=== PATIENT | female | born 1985 | race Caucasian/White ===

== ENCOUNTER → 2017-02-19 | Day surgery (SDC) | payer BC, OTHER ==
[2017-02-03 16:41] VITALS: Ht 175.3 cm; Wt 62.7 kg
[~2017-02-19] VITALS: Ht 175.3 cm; Wt 62.7 kg
[~2017-02-19] MED LIST: ACETAMINOPHEN 1000 MG/100 ML IV IV ONE; ATROPINE SULFATE 0.1 MG/ML 5ML SYR IV PRN; CHOL2000 PO; CLB/200 PO; CLINDAMYCIN PHOS 150 MG/ML 2 ML VIAL IV SCH; COEN1CAP PO; CTP/1 PO; CYCL10TA6 PO; DEXAMETHASONE SOD INJ 4 MG/ML VIAL ONE; DIAZ2TAB PO; EpHEDrine SULFATE INJ 50 MG/ML AMP IV PRN; EpINEphrine INJ 1MG/ML AMP 1 MG/ML AMP ONE; FENTANYL CITRATE INJ 50 MCG/1 ML 2 ML VIAL ONE; FRN PO; GABA-113 PO; GING1CAP PO; HYDR-5688 PO; HYDROCODONE/ACETAMOPHEN 5/325MG TAB PO PRN; HYDROmorphone INJ 1 MG/ML SYR IV PRN; KETOROLAC TROMETHAMINE 30 MG/ML VIAL ONE; LACTATED RINGER'S 1000ML 1,000 ML IV SCH; LIDOCAINE HCL 2% 2 ML VIAL (20MG/ML) ONE; MAGN250T9 PO; MIDAZOLAM HCL 1 MG/ML 2ML VIAL ONE; ONDANSETRON INJ 2 MG/ML 2 ML VIAL IV PRN; ONDANSETRON INJ 2 MG/ML 2 ML VIAL ONE; POLY335025 PO; PRLSR20 PO; PROMETHAZINE HCL INJ 12.5 MG in SODIUM CHLORIDE 0.9% 50ML 50 ML IV PRN; PROPOFOL IV EMULSION 10 MG/ML 20 ML VIAL IV ONE; ROPIVACAINE 0.5% 5 MG/ML 30 ML VIAL ONE; SODIUM CHLORIDE 0.9% 1000ML 1,000 ML IV SCH
--- NOTE | 2017-02-19 08:20 | History & Physical Bridge Note ---
H&P Re-Evaluation Bridge Note: I have examined the patient, reviewed the History & Physical and in the interval since the performance of the History & Physical I have noted the following changes of clinical significance: No changes noted
--- NOTE | 2017-02-19 09:44 | [facility] Post Operative Brief Note ---
Immediate Operative Summary Operative Date Feb 19, 2017. Pre-Operative Diagnosis Liposynovitis Prepatellaris Post-Operative Diagnosis Same Procedure(s) Performed Left Knee Arthroscopy Synovectomy Surgeon Dr. Ledesma Team Cdl Driver Surgeon(s) Yakelin Ribeiro PA-C Estimated Blood Loss 5ml Findings as above Specimens None Complication(s) None Disposition Recovery Room / PACU
--- NOTE | 2017-02-19 09:45 | Discharge Instructions-SurgCtr ---
Discharge Instructions Date of Service Feb 19, 2017. Visit Reason for Visit: Liposynovitis Prepatellaris Discharge Discharge Diagnosis / Problem: SAME ABOVE Discharge Goals Goal(s): Decrease discomfort, Improve function Medications Stopped Medications Name(s): CELEBREX- STOPPED 1 WEEK AGO Restart Stopped Medication(s): NOVEMBER RESTART 02/19/2017 Activity Recommendations Activity Limitations: as noted below Lifting Limitations: gradually increase as tolerated Exercise/Sports Limitations: gradually increase as tolerated Shower/Bathe: tomorrow Driving or Machine Use: resume 1 day after discharge Anesthesia . Post Anesthesia Instructions: If you have had General Anesthesia or IV Sedation: * Do not drive today. * Resume driving when surgeon permits. * Do not make important decisions or sign legal documents today. * Call surgeon for: 1. Temperature elevations greater than 101 degrees F. 2. Uncontrollable pain. 3. Excessive bleeding. 4. Persistent nausea and vomiting. 5. Medication intolerance (nausea, vomiting or rash). * For nausea and vomiting use only clear liquids such as: tea, soda, bouillon until nausea subsides, then gradually increase diet as tolerated. * If you have any concerns or questions, call your surgeon's office. If physician is unavailable and it is an emergency, call 911 or go to the nearest emergency room. . Instructions / Follow-Up Instructions / Follow-Up MEDICATIONS: * Resume previous medications unless instructed otherwise by your surgeon. * Always take pain medication on a full stomach or with food to avoid upset stomach. * Do not drink alcohol or drive while taking narcotics. * Ibuprofen or Tylenol may be taken if narcotic not needed. SPECIAL CARE INSTRUCTIONS: __ None _X_ Keep extremity elevated and iced x 48 hours; apply ice 20-30 minutes 8-10 times/day. May remove at night. _X_ Crutches _X_ May discard when able __ Brace/Post-op shoe __ 24 hrs/day __ Remove at night _X_ Dressing __ Maintain until seen in office, may shower with plastic over site _X_ Remove dressings in 24-48 hours and then may shower _X_ Cover incisions with band-aids after showering __ Do not remove steri-strips Call physician if chills or temperature rises above 102 degrees or pain unrelieved by prescribed pain medications. Office [phone] Diet Recommendations Home Diet: no limitations Fluid Restriction: None Procedures Procedures Performed: Left Knee Arthroscopy Synovectomy Pending Studies Studies pending at discharge: no Work Instructions Return To Work: after follow-up Medical Emergencies . Who to Call and When: Medical Emergencies: If at any time you feel your situation is an emergency, please call 911 immediately. . Non-Emergent Contact Non-Emergency issues call your: Primary Care Provider, Hospital Doctor Call Non-Emergent contact if: you have a fever, temperature is above 101.5 . . "Provider Documentation" section prepared by Maco Ribeiro. .
--- NOTE | 2017-02-19 09:53 | OPERATIVE REPORT ---
DATE OF OPERATION: 02/19/2017 PREOPERATIVE DIAGNOSES: Synovitis with plica and fat pad impingement of the left knee. POSTOPERATIVE DIAGNOSES: Same. PROCEDURE: Left knee arthroscopy with extensive debridement. SURGEON: Dr. Guillermo Ledesma. LICENSED APPRAISER: Garrick Ribeiro PA-C, whose assistance was necessary for positioning of the knee and helping with instrumentation. ANESTHESIA: General. COMPLICATIONS: None. CONDITION: Stable to PACU. INDICATIONS: Alisha is a pleasant 31-year-old female who presented to my office mostly with patellofemoral type symptoms. All of her pain was located in the superior medial border of the patella. After failing a year of conservative treatment, I got an MRI. The MRI did show signs of fat pad impingement in the superior medial aspect of the patella. It did light up at that area. She also had sided plica. After failing conservative treatment, she elected to undergo arthroscopy. DESCRIPTION OF PROCEDURE: On 02/19/2017, she arrived at [facility] for the above procedure. She was seen in the preoperative holding area and the operative extremity was identified and signed. She was given a preoperative antibiotic, taken back to the operating room, laid on the table in supine position and put under general anesthesia. The left knee was then prepped and draped in sterile fashion. Time-out was done and the patient and operative extremity was properly identified. A scope was introduced in the lateral parapatellar portal. Diagnostic arthroscopy showed no cartilage damage within the trochlea or patella. There were no loose bodies in the suprapatellar pouch. There was some inflamed synovitis within the superior medial border of the patella. There was a large plica. The scope was brought into the medial compartment. A medial parapatellar portal was made under direct visualization. A probe was used to probe the medial meniscus and there was no evidence of tear. There was no cartilage damage in the medial compartment. The scope was brought into the trochlea. ACL and PCL were intact. The scope was then brought into the lateral compartment and there was no cartilage or meniscus damage. The knee was then brought into full extension. A shaver was used to start the synovectomy. At first, the fat pad was completely removed. Then attention was turned to the superior medial border of the patella. Time was spent doing a synovectomy of that area and removing any signs of fat pad impingement. Multiple pictures were taken. Time was spent removing any debris from the suprapatellar pouch. The scope was then placed in the medial parapatellar portal. Repeat diagnostic arthroscopy showed no additional pathology. The knee was then irrigated. Arthroscopic instruments were removed from the knee. Portal sites were closed with 3-0 nylon. The knee was then injected with 30 mL of Naropin, epinephrine and Toradol. She was then placed in a soft compressive dressing, extubated, transferred to a [facility] and taken to the postanesthesia care unit in stable condition. She tolerated the procedure well. I attest to the content of the Intraoperative Record and any orders documented therein. Any exceptions are noted below. DRU
[2017-02-19] MEDS: FENTANYL CITRATE INJ 50 MCG/1 ML 2 ML VIAL IV PRN ×2 (10:09→10:15)
[2017-02-19 10:48] VITALS: TEMP 36.5
[2017-02-19 11:24] VITALS: BP 102/68; PULSE 78; O2SAT 100
--- NOTE | 2017-02-19 11:36 | Anesthesia Progress Nt - [facility] ---
Anesthesia Post Op Note Date & Time Feb 19, 2017 at 11:35 Vital Signs Pain Intensity: 2 Vital Signs Past 12 Hours Date Time Temp Pulse Resp B/P (MAP) Pulse Ox O2 Delivery O2 Flow Rate FiO2 02/19/17 11:24 78 16 102/68 (79) 100 Room Air 02/19/17 10:48 36.5 79 16 111/72 (85) 100 Room Air 02/19/17 10:41 37.3 77 12 108/68 100 Room Air 02/19/17 10:40 73 19 02/19/17 10:40 73 19 108/68 100 02/19/17 10:35 72 12 111/68 98 02/19/17 10:35 74 12 02/19/17 10:30 82 17 108/68 99 02/19/17 10:30 80 17 02/19/17 10:25 86 20 02/19/17 10:25 85 20 107/65 100 02/19/17 10:20 76 13 02/19/17 10:20 76 13 123/66 100 02/19/17 10:15 80 10 02/19/17 10:15 80 10 110/70 100 02/19/17 10:10 73 8 02/19/17 10:10 74 8 111/62 100 02/19/17 10:05 88 15 109/62 100 02/19/17 10:05 87 15 02/19/17 10:00 76 12 02/19/17 10:00 71 12 103/61 100 02/19/17 09:55 69 10 02/19/17 09:55 69 10 103/63 100 02/19/17 09:50 74 02/19/17 09:50 36.2 61 12 108/66 100 Mask 6 02/19/17 09:50 74 108/66 100 02/19/17 07:39 36.8 96 20 105/72 (83) 98 Room Air Notes Mental Status: alert / awake / arousable, participated in evaluation Pt Amnestic to Procedure: Yes Nausea / Vomiting: adequately controlled Pain: adequately controlled Airway Patency, RR, SpO2: stable & adequate BP & HR: stable & adequate Hydration State: stable & adequate Anesthetic Complications: no major complications apparent doing well. Pain controlled. No n/v
== END | disposition home or self-care (01) ==
LOC: X.SURG 07:18
PROVIDERS: ATTEND Orthopaedic Surgery
DX: M65.9 Synovitis and tenosynovitis, unspecified (principal); M25.862 Other specified joint disorders, left knee; E88.89 Other specified metabolic disorders; M79.7 Fibromyalgia; J45.909 Unspecified asthma, uncomplicated; Z82.3 Family history of stroke

== ENCOUNTER 2017-10-05 19:49 | Emergency (ER) | payer OTHER ==
[~2017-10-05] VITALS: Ht 175.3 cm; Wt 66.8 kg
[~2017-10-05 19:49] MED LIST changes: -ACETAMINOPHEN 1000 MG/100 ML IV IV ONE; -ATROPINE SULFATE 0.1 MG/ML 5ML SYR IV PRN; -CLINDAMYCIN PHOS 150 MG/ML 2 ML VIAL IV SCH; -DEXAMETHASONE SOD INJ 4 MG/ML VIAL ONE; -EpHEDrine SULFATE INJ 50 MG/ML AMP IV PRN; -EpINEphrine INJ 1MG/ML AMP 1 MG/ML AMP ONE; -FENTANYL CITRATE INJ 50 MCG/1 ML 2 ML VIAL ONE; -HYDR-5688 PO; -HYDROCODONE/ACETAMOPHEN 5/325MG TAB PO PRN; -HYDROmorphone INJ 1 MG/ML SYR IV PRN; -KETOROLAC TROMETHAMINE 30 MG/ML VIAL ONE; -LACTATED RINGER'S 1000ML 1,000 ML IV SCH; -LIDOCAINE HCL 2% 2 ML VIAL (20MG/ML) ONE; -MIDAZOLAM HCL 1 MG/ML 2ML VIAL ONE; -ONDANSETRON INJ 2 MG/ML 2 ML VIAL IV PRN; -ONDANSETRON INJ 2 MG/ML 2 ML VIAL ONE; -PROMETHAZINE HCL INJ 12.5 MG in SODIUM CHLORIDE 0.9% 50ML 50 ML IV PRN; -PROPOFOL IV EMULSION 10 MG/ML 20 ML VIAL IV ONE; -ROPIVACAINE 0.5% 5 MG/ML 30 ML VIAL ONE; -SODIUM CHLORIDE 0.9% 1000ML 1,000 ML IV SCH
[2017-10-05 19:59] VITALS: TEMP 36.8; Ht 175.3 cm; Wt 66.8 kg
[2017-10-05] MEDS ORDERED: SODIUM CHLORIDE 0.9% 1000ML 1,000 ML IV STA (21:40)
[2017-10-05] MEDS ORDERED: DiphenhydrAMINE HCL 50 MG/ML VIAL IV STA (21:40)
[2017-10-05] MEDS ORDERED: METOCLOPRAMIDE HCL INJ 5 MG/ML 2 ML VIAL IV STA (21:40)
[2017-10-05 22:09] VITALS: O2SAT 98
[2017-10-05 22:13] LABS: BASO % 0.3 %; BASO ABS # 0.03 K/uL (0-0.2); EOS % 0.5 %; EOS ABS # 0.06 K/uL (0-0.5); HEMOGLOBIN 14.8 g/dL (12.0-16.0); IG# 0.07 K/uL (0.00-0.02); LYMPH % 30.7 %; LYMPH ABS # 3.36 K/uL (1.2-3.4); MEAN CORPUSCULAR HEMOGLOBIN 31.4 pg (25-34); MEAN CORPUSCULAR HGB CONC 35.2 g/dl (32-36); MEAN PLATELET VOLUME 9.7 fL (7.4-10.4); MONO % 8.6 %; MONO ABS # 0.94 K/uL (0.11-0.59); NEUT % 59.3 %; NEUT ABS # 6.49 K/uL (1.4-6.5); PLATELET COUNT 271 K/uL (130-400); RED CELL DISTRIBUTION WIDTH CV 12.4 % (11.5-14.5); RED CELL DISTRIBUTION WIDTH SD 40.2 fL (36.4-46.3); WHITE BLOOD COUNT 10.95 K/uL (4.8-10.8)
[2017-10-05 22:37] LABS: ALBUMIN 4.6 gm/dl (3.4-5.0); ALT/SGPT 19 U/L (12-78); BLOOD UREA NITROGEN 14 mg/dl (7-18); CARBON DIOXIDE 27 mmol/L (21-32); CREATININE 0.93 mg/dl (0.60-1.20); GLUCOSE 88 mg/dl (70-99); POTASSIUM 3.8 mmol/L (3.5-5.1); SODIUM 138 mmol/L (136-145)
[2017-10-05 22:48] LABS: ALKALINE PHOSPHATASE 62 U/L (45-117); AST/SGOT 8 U/L (15-37); TOTAL PROTEIN 7.7 gm/dl (6.4-8.2)
[2017-10-06] MEDS ORDERED: PROCHLORPERAZINE 5 MG/ML 2 ML VIAL IV STA (00:02)
[2017-10-06] MEDS ORDERED: KETOROLAC TROMETHAMINE 30 MG/ML VIAL IV STA (00:02)
--- NOTE | 2017-10-06 00:57 | EMERGENCY ROOM VISIT NOTE ---
ED Visit Note First contact with patient: 21:24 Patient was seen by our PA/HEAVY EQUIPMENT PLUMBING SUPERVISOR. I was involved in the patient's care and did evaluate the patient myself. I was involved in the care throughout the ER stay. The patient presents with a headache. Workup today is reassuring. MRI is unchanged. The patient is improved after being medicated. She is being discharged home with neurology follow-up.
[2017-10-06] MEDS ORDERED: GADAVIST IV PRN (01:00)
[2017-10-06 01:51] VITALS: BP 118/70; PULSE 78; O2SAT 98
--- NOTE | 2017-10-06 05:58 | EMERGENCY ROOM VISIT NOTE ---
History First contact with patient: 21:24 Chief Complaint: HEADACHE Stated Complaint: MIGRAINE,BLURRIED VISION History of Present Illness The patient is a 32 year old female who presents to the Emergency Room with complaints of increasing headaches for the past few days with blurred vision tonight. Patient states she had an MRI earlier this month that showed a pituitary adenoma versus cyst. She has an appointment 22 October with neurology and 25 December with [place] [facility]. Patient is concerned he might be changes to her pituitary gland. Patient denies severe headache, localized weakness, fever, chills, neck stiffness, chest pain, dyspnea, vision loss, floaters, eye pain, cough, congestion, cold symptoms, abdominal pain. She is tolerating p.o. fluids and food. No injury. Review of Systems An 10 system review of systems was completed with positives and pertinent negatives listed in the HPI. Past Medical/Surgical History Migraines, pituitary adenoma, fibromyalgia, asthma Social History Smoking Status: Never Smoker Alcohol Use: none Drug Use: none Marital Status: Housing Status: lives with family Current/Historical Medications Scheduled Celecoxib (CeleBREX), 200 MG PO QAM Cholecalciferol (Vitamin D3), 2,000 INTER.UNIT PO QAM Clonidine Hcl (Catapres), 0.1 MG PO HS Magnesium (Magnesium), 250 MG PO QAM Omeprazole (Prilosec), 20 MG PO QAM Polyethylene Glycol 3350 (Miralax), 17 GM PO DAILY Scheduled PRN Brnnfrshul-Oahltxh-Vyyxgsit (Butalbital/Aspirin/Caffei 50-325-40 mg), 1 CAP PO UD PRN for Headache Cyclobenzaprine Hcl (Flexeril), 10 MG PO TID PRN for Muscle Spasm Diazepam (Valium), 1-2 MG PO BID PRN for Muscle Spasm Physical Exam Vital Signs Date Time Temp Pulse Resp B/P (MAP) Pulse Ox O2 Delivery O2 Flow Rate FiO2 10/06/17 01:51 78 20 118/70 98 Room Air 10/06/17 00:01 73 18 116/73 97 Room Air 10/05/17 22:13 70 20 127/88 100 Room Air 10/05/17 22:11 76 119/82 75 125/84 73 127/88 10/05/17 22:09 98 Room Air 10/05/17 22:09 98 Room Air 10/05/17 19:59 36.8 81 16 141/95 98 Room Air Right Eye Acuity: 20/30 Left Eye Acuity: 20/30 Physical Exam VITALS: Vitals are noted on the nurse's note and reviewed by myself. Vital signs stable. GENERAL: Pleasant female, in no acute distress, nondiaphoretic, well-developed well-nourished. SKIN: The skin was without rashes, erythema, edema, or bruising. There is no tenting of the skin. Capillary reflex less than 2 seconds. HEAD: Normocephalic atraumatic. EARS: External auditory canals clear, tympanic membranes pearly simon without erythema or effusion bilaterally. EYES: Pupils equal round and reactive to light and accommodation. Conjunctivae without injection, sclerae without icterus. Extraocular movements intact. Visual echevarria are intact. NOSE: Patent, turbinates without inflammation or discharge. No sinus tenderness. MOUTH: Mucous membranes moist. Pharynx without erythema or exudate. Uvula midline. Airway patent. Tongue does not deviate. NECK: Supple without nuchal rigidity. No lymphadenopathy. No thyromegaly. Cervical spine is nontender. No JVD. HEART: Regular rate and rhythm without murmurs gallops or rubs. LUNGS: Clear to auscultation bilaterally without wheezes, rales or rhonchi. No retractions or accessory muscle use. ABDOMEN: Positive bowel sounds x 4. Normal tympanic percussion. Soft, nontender, without masses or organomegaly. Fox sign negative. No guarding or rebound tenderness. No CVA tenderness MUSCULOSKELETAL: No muscle atrophy, erythema, or edema noted. NEURO: Patient was alert and oriented to person place and time. Normal sensation to light and sharp touch. No focal neurological deficits. Medical Decision & Procedures Laboratory Results 10/05/17 22:00 Red Blood Count 4.72, Mean Corpuscular Volume 89.0, Mean Corpuscular Hemoglobin 31.4, Mean Corpuscular Hemoglobin Concent 35.2, Mean Platelet Volume 9.7, Neutrophils (%) (Auto) 59.3, Lymphocytes (%) (Auto) 30.7, Monocytes (%) (Auto) 8.6, Eosinophils (%) (Auto) 0.5, Basophils (%) (Auto) 0.3, Neutrophils # (Auto) 6.49, Lymphocytes # (Auto) 3.36, Monocytes # (Auto) 0.94, Eosinophils # (Auto) 0.06, Basophils # (Auto) 0.03 10/05/17 22:00 Test 10/05/17 22:00 White Blood Count 10.95 K/uL (4.8-10.8) Red Blood Count 4.72 M/uL (4.2-5.4) Hemoglobin 14.8 g/dL (12.0-16.0) Hematocrit 42.0 % (37-47) Mean Corpuscular Volume 89.0 fL (80-100) Mean Corpuscular Hemoglobin 31.4 pg (25-34) Mean Corpuscular Hemoglobin Concent 35.2 g/dl (32-36) Platelet Count 271 K/uL (130-400) Mean Platelet Volume 9.7 fL (7.4-10.4) Neutrophils (%) (Auto) 59.3 % Lymphocytes (%) (Auto) 30.7 % Monocytes (%) (Auto) 8.6 % Eosinophils (%) (Auto) 0.5 % Basophils (%) (Auto) 0.3 % Neutrophils # (Auto) 6.49 K/uL (1.4-6.5) Lymphocytes # (Auto) 3.36 K/uL (1.2-3.4) Monocytes # (Auto) 0.94 K/uL (0.11-0.59) Eosinophils # (Auto) 0.06 K/uL (0-0.5) Basophils # (Auto) 0.03 K/uL (0-0.2) RDW Standard Deviation 40.2 fL (36.4-46.3) RDW Coefficient of Variation 12.4 % (11.5-14.5) Immature Granulocyte % (Auto) 0.6 % Immature Granulocyte # (Auto) 0.07 K/uL (0.00-0.02) Urine Color YELLOW Urine Appearance CLEAR (CLEAR) Urine pH 7.0 (4.5-7.5) Urine Specific [place] 1.008 (1.000-1.030) Urine Protein NEG (NEG) Urine Glucose (UA) NEG (NEG) Urine Ketones NEG (NEG) Urine Occult Blood NEG (NEG) Urine Nitrite NEG (NEG) Urine Bilirubin NEG (NEG) Urine Urobilinogen NEG (NEG) Urine Leukocyte Esterase NEG (NEG) Anion Gap 9.0 mmol/L (3-11) Est Creatinine Clear Calc Drug Dose 90.0 ml/min Estimated GFR () 93.6 Estimated GFR (Non- 80.8 BUN/Creatinine Ratio 14.8 (10-20) Calcium Level 9.0 mg/dl (8.5-10.1) Magnesium Level 2.3 mg/dl (1.8-2.4) Total Bilirubin 0.2 mg/dl (0.2-1) Direct Bilirubin < 0.1 mg/dl (0-0.2) Aspartate Amino Transf (AST/SGOT) 8 U/L (15-37) Alanine Aminotransferase (ALT/SGPT) 19 U/L (12-78) Alkaline Phosphatase 62 U/L (45-117) Total Protein 7.7 gm/dl (6.4-8.2) Albumin 4.6 gm/dl (3.4-5.0) Thyroid Stimulating Hormone (TSH) 3.620 uIu/ml (0.300-4.500) Human Chorionic Gonadotropin, Qual NEG (NEG) Medications Administered Medications (Trade) Dose Ordered Sig/Rashard Route Start Time Stop Time Status Last Admin Dose Admin Sodium Chloride 1,000 ml @ 999 mls/hr Q1H1M STAT IV 10/05/17 21:40 10/05/17 22:40 DC 10/05/17 21:40 999 MLS/HR Metoclopramide HCl (Reglan Inj) 10 mg NOW STAT IV 10/05/17 21:40 10/05/17 21:43 DC 10/05/17 21:40 10 MG Diphenhydramine HCl (Benadryl Inj) 12.5 mg NOW STAT IV 10/05/17 21:40 10/05/17 21:43 DC 10/05/17 21:40 12.5 MG Ketorolac Tromethamine (Toradol Inj) 15 mg NOW STAT IV 10/06/17 00:02 10/06/17 00:04 DC 10/06/17 00:10 15 MG Prochlorperazine Edisylate (Compazine Inj) 10 mg NOW STAT IV 10/06/17 00:02 10/06/17 00:04 DC 10/06/17 00:10 10 MG ED Course Prior records/ancillary studies reviewed. Additional history obtained from family Triage Nursing notes reviewed. The patient's history was concerning for headache. Differential diagnosis: Etiologies such as migraine headache, meningitis, sinusitis, CO exposure, ICH, SAH, infection, tumor, headache, sinus thrombosis, arterial dissection, as well as others were entertained. Physical examination findings: As above. Non-focal. ER treatment provided: Reglan, Benadryl, IV fluids, Toradol, Compazine On reassessment the patient felt better. Diagnostics interpreted by me: ECG: Normal sinus, normal intervals, T-wave inversions in the inferior leads concerning for atrial enlargement, T-wave inversion V2, rate of 68. Impression normal sinus rhythm with T-wave inversions in the inferior leads interpreted by myself The labs revealed no worrisome leukocytosis or electrolyte abnormality. Negative ECG Imaging studies: Brain MRI with no acute changes noted. I did review the brain MRI from the [facility] from [facility] that showed a possible pituitary gland microadenoma or cyst. This appears to be consistent with headache. Patient has follow-up appointments this month with neurology and neurosurgery. She is informed to keep this. Patient had no changes to her MRI. She was neurovascularly and neurologically intact. She is well-appearing. Visual acuity was unremarkable. Visual echevarria were normal.. She is advised to take medications as directed, rest, stay well-hydrated follow-up with her specialist as scheduled or here in the ER sooner for vision problems, severe headaches, weaknesses, worsening signs or symptoms or as needed. By the evaluation outlined above emergent etiologies such as meningitis, sinusitis, CO exposure, ICH, SAH, infection, temporal arteritis, sinus thrombosis, arterial dissection, as well as others were deemed relatively unlikely. Prior records reviewed. I obtained the records from [facility] from case management. The pt informed about the findings as listed above. All questions were answered and pleased with the treatment. Return instructions were outlined and the patient was discharged in stable condition. Referral: The patient was referred back to their primary care physician along with her specialist as scheduled for follow-up in 2 to 3 days for a recheck of the current condition. Case reviewed with my attending The chart was completed utilizing [employer] voice recognition software. Grammatical errors, random word insertions, pronoun errors, and incomplete sentences are an occassional consequence of this system due to software limitations, ambient noise, and hardware issues. Any formal questions or concerns about the content, text, or information contained within the body of this dictation should be directly addressed to the physician cement tester assistant for clarification. Medical Decision as above Medication Reconcilliation Current Medication List: was personally reviewed by me Blood Pressure Screening Patient's blood pressure: Normal blood pressure Impression Primary Impression: Headache Departure Information Dispostion Home / Self-Care Condition GOOD Referrals Renzo Barrios MD (PCP) Forms HOME CARE DOCUMENTATION FORM, IMPORTANT VISIT INFORMATION Patient Instructions My [facility] dineout Additional Instructions DO NOT drive, drink alcohol, operate machinery, or perform dangerous activities today. You were given medications in the ER that can affect your ability to safely function or operate a vehicle. Rest today in a quiet, peaceful, dark environment and get a full 8-10 hrs of sleep tonight. Avoid loud noises, smoke/smoking, alcohol, bright lights, stress, or physical exertion today to minimize the chance the headache may return. Continue current medications. Ibuprofen(Motrin, Advil) may be used for fever or pain. Use 600mg every six hours as needed. Take with food. Avoid using more than 2400mg in a 24 hour period. Do not use 2400mg per day for more than three consecutive days without physician direction. Prolonged inappropriate use can lead to stomach upset or ulcers. (AND/OR) Acetaminophen(Tylenol) may be used for fever or pain. Use 1000mg every six hours as needed. Avoid using more than 3000mg in a 24 hour period. Return to the ER for passing out, worsening headache, vision problems, neck stiffness/pain, fevers, vomiting, worsening of your condition, or as needed. Follow up with your primary physician and/or a neurologist in 2-3 days for a recheck of your current condition. Problem Qualifiers Primary Impression: Headache Headache type: unspecified Headache chronicity pattern: acute headache Intractability: not intractable Qualified Codes: R51 - Headache
--- NOTE | 2017-10-06 07:17 | DIAGNOSTIC IMAGING REPORT ---
BRAIN COMBO FOR PITUITARY CLINICAL HISTORY: 32 years-old Female presenting with migraine for 3 1/2 weeks, possible pituitary tumor and cyst on prior MRI, right-sided head pain and vision changes. TECHNIQUE: Multisequence, multiplanar MR imaging of the brain was performed before and after the administration of intravenous contrast. IV contrast: 6.5 mL of Gadavist. COMPARISON: None. FINDINGS: The pituitary gland is normal in craniocaudal thickness and signal intensity. No abnormal T1 hyperintensity on precontrast imaging. There is however a T1 hypointense lesion within the anterior pituitary. Normal T1 hyperintensity of the posterior pituitary. Dynamic postcontrast imaging demonstrates focal hypoenhancing 5 mm lesion just to the left of midline (series 11 image 19). This region is T2 hyperintense (series 6 image 9; series 9 image 45), consistent with a cyst. This does not exert mass effect on surrounding structures. This does not exhibit infiltrative margins. Ventricles and sulci normal in size. Brain parenchyma normal in appearance with preserved simon-white differentiation. No mass effect or midline shift. No restricted diffusion to suggest acute ischemia. No hemorrhage. No extra-axial fluid collection. The bilateral optic nerves demonstrate restricted diffusion that may be greater than expected. No abnormal fluid along the optic nerves. No evidence of papilledema. No masslike enhancement of the optic nerves. T2 skull base flow voids preserved. No abnormal parenchymal enhancement. Bone marrow signal intensity within the calvarium within normal limits. IMPRESSION: 1. 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 No suspicious mass. 2. Questionable restricted diffusion of the bilateral optic nerves. Restricted diffusion can be seen in the setting of optic neuritis such as in the setting of demyelinating disease, however, this is not usually bilateral. Therefore, this finding favors artifact. Furthermore, no abnormal signal intensity is noted in the brain parenchyma. Electronically signed by: Mario Blank M.D. 10/06/2017 7:15 AM Dictated Date/Time: 10/06/2017 7:03 AM
== END 2017-10-06 01:51 | disposition home or self-care (01) ==
LOC: C.EDB 19:51 → C.EDC 10-06 01:51
DX: R51 Headache (principal); D35.2 Benign neoplasm of pituitary gland; M79.7 Fibromyalgia; J45.909 Unspecified asthma, uncomplicated; Z86.69 Personal history of other diseases of the nervous system and sense organs